=== PATIENT | male | born 1960 | race Caucasian/White ===

== ENCOUNTER 2022-07-03 19:54 | Emergency (ER) | payer OTHER ==
[~2022-07-03] VITALS: Ht 160 cm; Wt 77.3 kg
[2022-07-03] MEDS ORDERED: CEPH-558 PO (22:21)
[2022-07-03 22:30] VITALS: BP 157/99
== END 2022-07-03 22:54 | disposition home or self-care (01) ==
LOC: EMS 19:56
DX: L03.011 Cellulitis of right finger (principal)
CPT/HCPCS: 26010; 99283; 99284